=== PATIENT | female | born 1975 | race Caucasian/White ===

== ENCOUNTER 2016-11-16 09:50 | Emergency (ER) | payer MEDICAID ==
[~2016-11-16] VITALS: Ht 152.4 cm; Wt 60.0 kg
[2016-11-16 10:09] VITALS: Ht 152.4 cm; Wt 60.0 kg
[2016-11-16] MEDS ORDERED: KETOROLAC 30 MG INJ IM STA (12:44)
--- NOTE | 2016-11-16 13:11 | ERD ---
ER Documentation Chief Complaint Date/Time DATE: 11/16/16 TIME: 13:03 Chief Complaint bilat hand pain and swelling x 1 week HPI 41-year-old otherwise healthy female presents to the emergency department complaining of 5 out of 10, throbbing, bilateral hand pain, swelling, and stiffening 1 week. She notes right hand symptoms greater than left. patient has the pain is worse upon waking up in the mornings. She states she has attempted to treat her pain with Tylenol with little relief. Patient also notes bilateral knee and shoulder pain which she rates a 3 out of 10 throbbing and worse with movement. Patient states she has experienced these symptoms 1 year ago but has never been diagnosed with any disease process. Patient denies any injury, fall, rash, fever, skin changes, vision changes, dizziness, headache , nausea, vomiting, diarrhea. Patient denies she has never had an x-ray performed. ROS All systems reviewed and are negative except as per history of present illness. Medications Home Meds Active Scripts Prednisone* (Prednisone*) 20 Mg Tab, 40 MG PO DAILY for 4 Days, TAB Prov:DACIA GUPTA PA-C 11/16/16 Naproxen* (Naprosyn*) 500 Mg Tablet, 500 MG PO BID Y for PAIN AND/OR INFLAMMATION, #30 TAB Prov:DACIA GUPTA PA-C 11/16/16 Hydrocodone/Acetaminophen ([place] 5-325 Tablet) 1 Each Tablet, 1 TAB PO QHS Y for PAIN, #20 TAB Prov:DACIA GUPTA PA-C 11/16/16 Allergies Allergies: Coded Allergies: No Known Drug Allergies (Verified Allergy, Unknown, 08/10/08) PMhx/Soc History of Surgery: Yes () Anesthesia Reaction: No Hx Neurological Disorder: No Hx Respiratory Disorders: No Hx Cardiac Disorders: No Hx Psychiatric Problems: No Hx Miscellaneous Medical Probl: No Hx Alcohol Use: No Hx Substance Use: No Hx Tobacco Use: No Physical Exam Vitals Vital Signs Date Time Temp Pulse Resp B/P Pulse Ox O2 Delivery O2 Flow Rate FiO2 11/16/16 10:09 98.1 71 18 130/74 98 Physical Exam Const: Well-developed, well-nourished, in no acute distress Head: Atraumatic Eyes: Normal Conjunctiva ENT: Normal External Ears, Nose and Mouth. Neck: Full range of motion..~ No meningismus. Resp: Clear to auscultation bilaterally Cardio: Regular rate and rhythm, no murmurs Abd: Soft, non tender, non distended. Normal bowel sounds Skin: No petechiae or rashes Back: No midline or flank tenderness Ext: Right hand swelling near second and third MCP joints with tenderness to palpation and limited range of motion due to pain. Second through fourth PIP joints mildly swollen, erythematous, and tender to palpation. Range of motion also limited due to pain. Full range of motion at wrist joint no snuffbox tenderness. Radial pulses equal and bilateral. Brisk capillary refill. 2. discrimination along the ulnar and radial aspects of all 5 fingers bilaterally. Radial, median, ulnar nerve motor and sensory function intact bilaterally. No elbow or shoulder injury or tenderness to palpation. Left hand mildly swollen and tender at first through third MCP joints. Bilateral knees non- erythematous nonswollen with mild tenderness to palpation full range of motion at knee joints bilaterally. Patient able to bear weight. Normal gait. No cyanosis, or edema Neur: Awake and alert. EOMs intact. PERRLA Psych: Normal Mood and Affect Results 24 hrs Current Medications Medications (Trade) Dose Ordered Sig/Shane Route PRN Reason Start Time Stop Time Status Last Admin Dose Admin Ketorolac Tromethamine (Toradol) 30 mg ONCE STAT IM 11/16/16 12:44 11/16/16 12:46 DC 11/16/16 12:53 Procedures/MDM PROCEDURE: Right hand series CLINICAL INDICATION: Swollen right hand. TECHNIQUE: Three views of the right hand were obtained. COMPARISON: No prior studies are available for comparison. FINDINGS: There is normal mineralization and alignment of the bones of the right hand. There is no evidence of acute fracture or dislocation. Joint spaces are well maintained. There is no evidence of osteophyte formation or erosions. There is mild diffuse soft tissue swelling.. IMPRESSION: 1. Mild diffuse soft tissue swelling without evidence of acute fracture or dislocation.. RPTAT: KK .Kelvin Gambino MD, Date Time Electronically viewed and signed by .Kelvin Gambino MD, on 2016 14:13 .B/ CC: DACIA GUPTA PA-C X-ray Hand 3V interpreted by radiologist: Scaphoid: Normal Bones: No fracture Joints: No dislocation, soft tissue swell Foreign body: None Patient received Toradol in the emergency department and reports improvement of pain and stiffness. Clinical picture consistent with multi-joint inflammatory process due to inflammatory arthritis. At this time I have low suspicion for septic joint, fracture, dislocation or infection as patient denies any injury, fever, chills, urinary symptoms. Patient placed in a wrist splint for comfort and provided with anti- inflammatory medication course. Patient to follow-up with store specialist regarding progression of her inflammatory process and proper management. Based on patient's history of present illness and physical examination the decision was made to discharge. The patient was re-evaluated after ED treatment and stabilizing measures, and symptoms have improved. There is no evidence of life threatening injuries or illnesses at this time. On re-examination, patient resting in no distress, stable vital signs, reports feeling better and safe for discharge with outpatient follow up with PMD in 1-2 days. Patient given return precautions. Patient expressed understanding of and agreement with plan. Departure Diagnosis: Primary Impression: Bilateral shoulder pain Chronicity: unspecified Qualified Code: M25.511 - Bilateral shoulder pain, unspecified chronicity Additional Impressions: Chronic pain of multiple joints Inflammatory arthritis Knee pain Laterality: bilateral Chronicity: unspecified Qualified Code: M25.561 - Pain in both knees, unspecified chronicity Swelling of joint, hand, right Hand pain Laterality: bilateral Qualified Code: M79.641 - Pain in both hands DACIA GUPTA PA-C Nov 16, 2016 13:11
--- NOTE | 2016-11-16 14:14 | RADRPT ---
PROCEDURE: Right hand series CLINICAL INDICATION: Swollen right hand. TECHNIQUE: Three views of the right hand were obtained. COMPARISON: No prior studies are available for comparison. FINDINGS: There is normal mineralization and alignment of the bones of the right hand. There is no evidence o f acute fracture or dislocation. Joint spaces are well maintained. There is no evidence of osteoph yte formation or erosions. There is mild diffuse soft tissue swelling.. IMPRESSION: 1. Mild diffuse soft tissue swelling without evidence of acute fracture or dislocation.. RPTAT: KK .eKlvin Gambino MD, MD Date Time Electronically viewed and signed by .Kelvin Gambino MD, MD on 11/16/2016 14:13 .B/
[2016-11-16] MEDS ORDERED: PRED20TA PO (14:16)
[2016-11-16] MEDS ORDERED: NAPR-260 PO (14:16)
[2016-11-16] MEDS ORDERED: HYDR-906 PO (14:16)
== END 2016-11-16 14:25 | disposition home or self-care (01) ==
LOC: FTE 09:50
DX: M25.512 Pain in left shoulder (principal); M79.642 Pain in left hand; M25.511 Pain in right shoulder; M19.90 Unspecified osteoarthritis, unspecified site; M25.561 Pain in right knee; M25.562 Pain in left knee; M79.89 Other specified soft tissue disorders
CPT/HCPCS: 73130; 96372; J1885; Z7502